=== PATIENT | female | born 1960 | race Caucasian/White ===

== ENCOUNTER 2024-03-17 09:11 | Outpatient (CLI) | payer OTHER, SELFPAY ==
--- OUTSIDE RECORDS SUMMARY | 2024-03-17 09:16 | XMS_ITS | Clinical Summary ---
Author Organization [facility] Address [place], [place] [address] Care Team Providers Care Child Care Sitter Name Role Phone Michelle Germain DO Primary Care Provider [phone] Allergies Active Allergy Reactions Criticality Noted Date Comments Sulfa (Sulfonamide Antibiotics) Rash 11/2006 Medications Medication Sig Dispensed Refills Start Date End Date Status MULTIVITAMIN TAB take 1 tablet by oral route once daily with food 0 08/14/2008 Active flaxseed oil-omega 3,6,9 1,300 mg-845 mg -117 mg-117 mg cap 1300 mg twice daily 0 02/09/2014 Active cholecalciferol (VITAMIN D3) 2,000 unit capsule Take 1 capsule by mouth 2 times daily. 0 01/29/2016 Active hydrocortisone 2.5% creamIndications:Chr onic eczema Apply topically to affected area(s) 2 times daily. 20 g 1 04/27/2018 Active magnesium oxide (MAG-OX 400) 400 mg tablet Take 1 Tablet (400 mg) by mouth once daily. 0 01/01/2022 Active fluocinonide 0.05 TOPICAL (LIDEX) 0.05 % external solutionIndications: Chronic eczema Apply topically to affected area(s) two times daily. 60 mL 04/04/2022 Active CPAPIndications:Obst ructive sleep apnea Travel CPAP machine for home use at pressure: 5-16 cmw , Full face mask x1 q 3mos, with cushion x 1 q mo, tubing x 1 q 3 mo, Headgear x 1 q 6 mo, Filters: Disposable x 2 q mo non-disposable filters x1 q 6mo, Length of Need: 99 months, Frequency of use: Daily 1 Each 11 01/27/2023 Active levothyroxine (SYNTHROID) 50 mcg tabletIndications:Ot her specified hypothyroidism Take 1 Tablet (50 mcg) by mouth once daily. 90 Tablet 3 04/27/2023 Active sertraline (ZOLOFT) 100 mg tabletIndications:Dy sthymic disorder Take 2 Tablets (200 mg) by mouth once daily. 180 Tablet 3 04/27/2023 Active medication order composerIndications: Symptomatic menopausal or female climacteric states Estriol 0.3%: 1 gram vaginal twice weekly at bedtime 30 mL 5 07/06/2023 Active CPAPIndications:Obst ructive sleep apnea CPAP machine for home use at pressure: 5-16 cmw , Heated humidifier x 1 q 5 yr, Humidifier chamber x 1 q 6 mo, Full face mask x1 q 3mos, with cushion x 1 q mo, Heated tubing x 1 q 3 mo, Headgear x 1 q 6 mo, Filters: Disposable x 2 q mo non-disposable filters x1 q 6mo, Length of Need: 99 months, Frequency of use: Daily 1 Each 11 09/23/2023 Active nitrofurantoin macrocrystals/monohy drate (MACROBID) 100 mg capsuleIndications:U TI due to Klebsiella species Take 1 Capsule (100 mg) by mouth two times daily for 5 days. 10 Capsule 02/22/2024 4 Active Problems Problem Noted Date Diagnosed Date Elevated ferritin 04/02/2022 Mixed hyperlipidemia 04/02/2022 Chronic buttock pain 03/18/2022 Overview (03/18/2022): Since injury with zip line. Mar 2022: starting gabapentin (neurontin). 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 Overview (02/03/2013): Diagnosed 2008, notes scanned into chart Urge incontinence 02/03/2013 Overview (02/03/2013): 2009 Adjustment disorder with mixed anxiety and depre ssed mood 01/17/2009 Unspecified sleep apnea 04/20/2007 Overview (04/20/2007): Uses CPap Other atopic dermatitis and related conditions 1 06/20/2006 Overview (04/20/2007): Eczema Anxiety state, unspecified 10/22/2006 Dysthymic disorder 10/22/2006 Unspecified hypothyroidism Encounters Date Type Department Care Team Description 02/19/2024 11:00 AM CDT Orders Only [facility] [address] [place] [address] Lab, [place] 02/19/2024 Travel 02/16/2024 9:20 AM CDT E-Visit [facility] [address] [place] [address] Michelle Germain, eVisit for Urinary Tract Infection 02/15/2024 Telephone [facility] [address] [place] [address] Tomas Zafar MD urinary sym 02/15/2024 Telephone [facility] [address] [place] [address] Carly Salamanca, SARAH Questions 02/15/2024 Nurse Triage [facility] [address] [place] [address] Michelle Germain, DO Urinary Problem from Last 3 Months Immunizations Name Administration Dates Next Due AMB Influenza, IIV3 (Age >=3 years)(Flu Clinic Only) 04/12/2008 AMB Influenza, IIV4 PF (=>6 mos Flulaval,Fluzone Fluarix)(Flu Clinic Only) 03/17/2016 COVID-19 VACCINE SPIKEVAX (M ODERNA 50MCG/0.5ML) 12YO+ PFS 04/27/2023 COVID-19 vaccine (Pfizer-Bio NTech 30mcg/0.3mL) 12YO+ BIVALENT PF, MDV 04/02/2022 COVID-19 vaccine (Pfizer-Bio NTech 30mcg/0.3mL) PF, MDV 10/17/2020 Hepatitis A (Adult) 07/24/2015,04/20/2007,2005 Influenza A (H1N1), Inactivated 05/18/2009 Influenza, IIV3 (Age >=3 years) 04/27/20 12,06/26/2011,04/12/2008,2006,03/24/2006,04/29/2005,05/28/2004,1 07/01/2002,04/12/2002,04/16/2001, 000,03/21/1999 Influenza, IIV4 03/02/2023, 2,03/29/2021,2019,03/01/2019,02/23/2018,03/05/2017,1 ,04/03/2015,03/13/2014 MMR 07/24/2015 Td (Age >=7 Years) 07/10/2004, 4,05/14/1995,1994 Tdap 08/27/2017,09/15/2012,01/08/2007 Zoster (Shingrix-RZV, recombinant) 03/01/2019,,03/15/2018 Family History Medical History Relation Name Comments Other Father Scleroderma Cancer Mother non hodgkins-ly mphoma Leukemia Mother due to chemo fo r lymphoma Other Mother Lupus Cancer-breast Paternal Aunt Psychiatric illness Sister 1 Ricka depressi on No Known Problems Sister 2 No Known Problems Sister 3 Cancer-colon No Family History Cancer-ovarian No Family History Relation Name Status Comments Father 05/22 Maternal Grandfather Maternal Grandmother Mother Paternal Aunt Paternal Grandfather Paternal Grandmother Sister 1 Ricka Alive Sister 2 Alive Sister 3 Alive Social History Tobacco Use Types Packs/Day Years Used Date Smoking Tobacco: Never Smokeless Tobacco: Never Tobacco Cessation:Counseling Given: Yes Alcohol Use Standard Drinks/Week Comments Yes 0 (1 standard drink = 0.6 oz pur e alcohol) 1-2 drink a week PHQ-2 Answer Date Recorded PHQ-2 TOTAL SCORE 0 04/27/2023 Social Connections Answer Date Recorded Frequency of Communication with Friends and Fami ly Not on file 09/18/2023 Financial Resource Strain Answer Date R ecorded Difficulty of Paying Living Expenses 3 09/15/2022 Difficulty of Paying Living Expenses Not on file 09/15/2022 Food Insecurity Answer Date Recorded Worried About Running Out of Food in the Last Ye ar 1 09/15/2022 Transportation Needs Answer Date Record ed Lack of Transportation (Medical) 1 09/15/2022 Housing Stability Answer Date Recorded Unable to Pay for Housing in the Last Year 1 09/15/2022 Sex and Gender Information Value Date Recorded Sex Assigned at Female 04/16/2020 4:24 PM PHD INTERN Gender Identity Female 04/16/2020 4:24 PM PHD INTERN Sexual Orientation Straight 04/16/2020 4: 24 PM PHD INTERN Obstetrics History Para Term AB IAB SAB Ectopic Multiple Livin g Live Births 5 3 3 2 2 3 Date Outcome GA Total Labor Labor/2nd/3rd Weight Sex Type Anes PTL Skye A1 A5 Name Clin SAB SAB Term Term Term Last Filed Vital Signs Vital Sign Reading Time Taken Comments Blood Pressure 118/79 04/27/2023 7:48 AM PHD INTERN Pulse 66 04/27/2023 7:48 AM PHD INTERN Temperature 36.4 ??C (97.6 ??F) 10/15/2021 11:32 AM C DT Respiratory Rate 16 07/09/2009 4:23 PM PHD INTERN Oxygen Saturation 96% 04/27/2023 7:48 AM PHD INTERN Inhaled Oxygen Concentration - - Weight 74.4 kg (164 lb 1.6 oz) 04/27/2023 7:48 A M PHD INTERN Height 164 cm (5' 4.57) 04/27/2023 7:48 AM PHD INTERN Body Mass Index 27.68 04/27/2023 7:48 AM PHD INTERN Plan of Treatment Health Maintenance Due Date Last Done Comments HIV for age 15-65 12/26/1975 COVID-19 vaccine series ( season) 2024 04/27/2023, 04/02/2022, 05/03/2021, Additional history exists Influenza for age 50-64 02/14/2024 03/02/20 23, 04/02/2022, 03/29/2021, Additional history exists BMI (ht and wt on same day) for age 18+ 04/27/2024 04/27/2023, 04/02/2022, 10/15/2021, Additional history exists Depression screening for age 12+ 04/27/2024 04/27/2023, 04/08/2022, 04/02/2022, Additional history exists Mammogram for age 45-75 05/04/2024 05/04/20 23, 04/30/2022, 04/29/2021, Additional history exists Pap test for age 21-65 03/01/2025 0, 03/01/2020, 03/05/2017, Additional history exists Tetanus booster 08/28/2027 08/27/2017, 04/0 08/2012, 01/08/2007, Additional history exists Lipids for age 45-75 04/27/2028 04/27/2023, 03/27/2022, 03/29/2021, Additional history exists Colonoscopy through age 75 05/23/203105/23, 05/23/2021, 05/23/2021, Additional history exists Tdap Completed 08/27/2017, 04/0 08/2012, 01/08/2007 Hepatitis C screening for age 18-79 Completed 03/01/2019 Pneumococcal series for age 6-64 Aged Out No longer eligible based on patient's age to complete this topic Procedures Procedure Name Priority Date/Time Associated Diagnosis Comments URINE CULTURE Add On 02/19/2024 11:00 AM CDT Dysuria Bacteriuria URINALYSIS MICROSCOPIC Routine 02/19/2024 11:00 AM CDT Dysuria UA W/ SEDIMENT EXAM REFLEXED PER CRITERIA Routine 02/19/2024 11:00 AM CDT Dysuria XR MAMMO BINDU BILAT SCREEN Routine 05/04/2023 9:22 AM PHD INTERN Visit for screening mammogram LIPID PANEL W REFLEX MEASURED LDL Routine 04/27/2023 9:01 AM PHD INTERN Mixed hyperlipidemia COLONOSCOPY SCREENING Routine 05/23/2021 7:22 AM PHD INTERN Screening for colon cancer DUCT CLEANER THIN PREP PAP SCREEN IMAGED Routine 03/01/2020 2:43 PM CDT Pap smear for cervical cancer screening ANTI HCV Routine 03/01/2019 8:57 AM CDT Need for hepatitis C screening test from Last 3 Months or Most Recently Relevant to Health Maintenance Results * (ABNORMAL) URINALYSIS MICROSCOPIC (02/19/2024 11:00 AM CDT) RBC 3-5(A) 0-2, None Seen /HPF 02/19/2024 11:24 AM CDT [facility] WBC 51-100(A) 0-2, 3-5, None Seen /HPF 02/19/2024 11:24 AM CDT [facility] BACTERIA Few None Seen, Rare, Few Bacteria/ HPF 02/19/2024 11:24 AM CDT [facility] EPITHELIAL CELLS Few None Seen, Few Epi/HPF 02/19/2024 11:24 AM CDT [facility] Urine URINE SPECIMEN / Unknown Non-Blood / Unknown 02/19/2024 11:00 AM CDT 02/19/2024 11:00 AM CDT Michelle Germain DO URINE [facility] [address] [place] [address], * (ABNORMAL) URINE CULTURE (02/19/2024 11:00 AM CDT) CULTURE RESULT(A) 02/22/2024 6:56 AM CDT [facility] CULTURE 10,000-50,000 CFU/mL Klebsiella pneumoniae 02/22/2024 6:56 AM CDT [facility] Urine URINE SPECIMEN / Unknown Non-Blood / Unknown 02/19/2024 11:00 AM CDT 02/19/2024 11:00 AM CDT Narrative Organism Antibiotic Method Susceptibility Klebsiella pneumoniae TRIMETHOPRIM/SULF <=07/03: S Klebsiella pneumoniae AMPICILLIN R Klebsiella pneumoniae CEFAZOLIN 2: S Klebsiella pneumoniae CEFAZOLIN-UC 2: S Comment:Cefazolin-UC interpretations are for therapy of uncomplicated UTIs due to E.coli, K.pneumoniae, or P.mirablis. Cefazolin breakpoint is used as a surrogate to predict results for the oral agents - cefdinir, cefuroxime, and cephalexin, when used for therapy of uncomplicated UTIs due to E coli, K, pneumoniae, and P. mirabilis. The FDA recommends cefadroxil susceptibility can be deduced from cefazolin. Klebsiella pneumoniae GENTAMICIN <=1: S Klebsiella pneumoniae CEFTRIAXONE <=0.25: S Klebsiella pneumoniae CEFTAZIDIME <=0.5: S Klebsiella pneumoniae LEVOFLOXACIN <=0.12: S Klebsiella pneumoniae CIPROFLOXACIN <=0.06: S Klebsiella pneumoniae PIPERACILLIN/TAZO <=4: S Klebsiella pneumoniae AMPICILLIN/SULBACTAM <=2: S Klebsiella pneumoniae CEFEPIME <=0.12: S Klebsiella pneumoniae MEROPENEM <=0.25: S Klebsiella pneumoniae NITROFURANTOIN 32: S Michelle Germain DO MICROBIOLOGY [facility] [address] [address], [place] * (ABNORMAL) UA W/ SEDIMENT EXAM REFLEXED PER CRITERIA (02/19/2024 11:00 AM CDT) COLOR Yellow Yellow Color 02/19/2024 11:24 AM CDT [facility] CLARITY Clear Clear Clarity 02/19/2024 11:24 AM CDT [facility] SPECIFIC GRAVITY,URINE 1.015 1.010, 1.015, 1.020, 1.025 02/19/2024 11:24 AM CDT [facility] PH,URINE 7.0 6.0, 7.0, 8.0, 5.5, 6.5, 7.5, 8.5 02/19/2024 11:24 AM CDT [facility] UROBILINOGEN, QUALITATIVE Normal Normal EU/dl 02/19/2024 11:24 AM CDT [facility] PROTEIN, URINE Negative Negative mg/dL 02/19/2024 11:24 AM CDT [facility] GLUCOSE, URINE Negative Negative mg/dL 02/19/2024 11:24 AM CDT [facility] KETONES,URINE Negative Negative mg/dL 02/19/2024 11:24 AM CDT [facility] BILIRUBIN,URI NE Negative Negative 02/19/2024 11:24 AM CDT [facility] OCCULT BLOOD,URINE Trace(A) Negative 02/19/2024 11:24 AM CDT [facility] NITRITE Negative Negative 02/19/2024 11:24 AM CDT [facility] LEUKOCYTE ESTERASE Trace(A) Negative 02/19/2024 11:24 AM CDT [facility] Urine URINE SPECIMEN / Unknown Non-Blood / Unknown 02/19/2024 11:00 AM CDT 02/19/2024 11:00 AM CDT Michelle Germain DO URINE [facility] [address] [place] [address], * XR MAMMO BINDU BILAT SCREEN (05/04/2023 9:22 AM PHD INTERN) Anatomical Region Laterality Modality BREASTS, Breast Left, Breast Right Bilateral Mammography Impressions 05/04/2023 1:15 PM PHD INTERN ??There is no radiographic evidence for malignancy. ??Recommend annual mammograms. MAMMOGRAM ASSESSMENT: ??ACR 1 Negative PATIENTS: You will also receive a letter with your examination results in an easy to read format. ??If you have questions about your results, please contact your referring provider. Narrative 05/04/2023 1:15 PM PHD INTERN For Patients: As a result of the 21st Century Cures Act, medical imaging exams and procedure reports are released immediately into your electronic medical record. You may view this report before your referring provider. If you have questions, please contact your health care provider. XR MAMMO BINDU BILAT SCREEN [[id number]] CLINICAL HISTORY: ??This is an asymptomatic 62 y.o. patient. INDICATION FOR EXAM: Mammogram Screening. TECHNIQUE: CC & MLO views were obtained. ??This study was evaluated with the assistance of Computer-Aided Detection. Breast Tomosynthesis was used in interpretation. COMPARISON FILM: Yes 04/30/22 [facility] 04/29/21 [facility] FINDINGS: ??The breasts are heterogeneously dense, which may obscure small masses. There are no dominant masses, suspicious micro calcifications or areas of architectural distortion. Michelle Germain DO MAMMO * (ABNORMAL) LIPID PANEL W REFLEX MEASURED LDL (04/27/2023 9:01 AM PHD INTERN) CHOLESTEROL,TOTAL 229(H) 100 - 199 mg/dL 04/27/2023 6:27 PM PHD INTERN [facility] Comment: Cholesterol, Total Reference Ranges Desirable <200 mg/dL Borderline 200-239 mg/dL High >=240 mg/dL TRIGLYCERIDES 123 <150 mg/dL 04/27/2023 6:27 PM PHD INTERN [facility] HDL CHOLESTEROL 42 >40 mg/dL 6:27 PM [facility] NON-HDL CHOLESTEROL 187(H) <145 mg/dl 04/27/2023 6:27 PM [facility] CHOL/HDL RATIO 5.45(H) <4.50 04/27/2023 6:27 PM PHD INTERN [facility] LDL CHOLESTEROL 162(H) <=130 mg/dL 04/27/2023 6:27 PM [facility] VLDL CHOLESTEROL 25 <=30 mg/dL 04/27/2023 6:27 PM [facility] PROVIDER ORDERED STATUS RANDOM 04/27/2023 6:27 PM [facility] Blood BLOOD SPECIMEN / Unknown Venipuncture / Unknown 04/27/2023 9:01 AM PHD INTERN 04/27/2023 9:02 AM PHD INTERN Michelle Germain DO [facility] [address] [place] [address], * COLONOSCOPY (05/23/2021 7:29 AM PHD INTERN) 05/23/2021 7:29 AM PHD INTERN Narrative Transcriptions Anjum Mandel MD - 05/23/2021 9:51 AM CST Patient Name: Carlee Miles Procedure Date: 05/23/2021 Gender: Female Date of : 1960 Admit Type: Outpatient Procedure: Colonoscopy Proceduralist: Anjum Mandel MD , Pamela Erickson (Nurse) Referring MD: Corrie Hernandez Indications/Pre-Op Diagnosis: Screening for colorectal malignant neoplasm, Last colonoscopy: January 2011 Medications: Fentanyl 200 micrograms IV, Midazolam 4 mgIV, The level of sedation administered wasmoderate Procedure Description: The patient had risks, benefits and alternatives explained to andgave informed consent. The patient had a stable cardiopulmonary status and judged an adequate candidate for conscious sedation. The Colonoscope was passed through the anus and advanced to thececum, identified by appendiceal orifice and ileocecal valve. Thecolonoscopy was performed without difficulty. The patient tolerated the procedure well. The quality of the bowel preparation was good. The ileocecal valve, appendiceal orifice, and rectum were photographed. Complications: No immediate complications. Estimated Blood Loss & Specimen: Estimated blood loss: none. Specimen collected - None Findings: The perianal and digital rectal examinations were normal. The colon (entire examined portion) was mildly redundant. The exam was otherwise without abnormality. Impressions/Post-Op Diagnosis: - Redundant colon. - The examination was otherwise normal. - No specimens collected. Recommendation: - Patient has a contact number available for emergencies. The signsand symptoms of potential delayed complications were discussed with the patient. Return to normal activities tomorrow. Written discharge instructions were provided to the patient. - Resume previous diet. - Continue present medications. - Repeat colonoscopy in 10 years for screening purposes with an adult scope. - Patient's sedation for a repeat study will require Anesthesia staff assistance. Moderate Sedation: Moderate (conscious) sedation was administered by the endoscopy nurse and supervised by the endoscopist. The following parameters were monitored: oxygen saturation, heart rate, respiratory rate, blood pressure, adequacy of pulmonary ventilation and reponse to care. Please refer to the patient's medical record flowsheets and nursing notes for moderate sedation details. Total physician intraservice time was 20 minutes. Anjum aMndel MD 05/23/2021 8:27:06 AM This report has been signed electronically. Note Initiated On: 05/23/2021 7:29 AM Procedure Code(s): --- Professional --- 99722, Colonoscopy, flexible; diagnostic, including collection of specimen(s) bybrushing or washing, when performed (separateprocedure) Diagnosis Code(s): --- Professional --- Z12.11, Encounter for screening formalignant neoplasm of colon Q43.8, Other specified congenitalmalformations of intestine CPT copyright 2020 [employer] [place] [employer]. All rights reserved. The codes documented in this report are preliminary and upon hcc coders reviewmay be revised to meet current compliance requirements. Scope In: 8:03:34 AM Scope Withdrawal Time 0 hours 7 minutes 48 seconds Scope Out: 8:21:21 AM Anjum Mandel MD PROCEDURE ORD * DUCT CLEANER THIN PREP PAP SCREEN IMAGED (03/01/2020 2:43 PM CDT) Case Report Gynecologic Cytology Report ? Case: [id number] ? Authorizing Provider: ??Corrie Hernandez, ??Collected: ? 03/01/2020 1443 ? PA ? Ordering Location: ? [facility] ?? Received: ?03/01/2020 1524 ? Clinic ? First Screen: ?Nimisha Araujo ? Specimen: ?DUCT CLEANER ThinPrep Vial Screening, Cervical ? 03/12/2020 7:45 PM CDT [facility] INTERPRETATION/ RESULT NEGATIVE FOR INTRAEPITHELIAL LESION OR MALIGNANCY (NIL) (none) 03/12/2020 7:45 PM CDT [facility] IMEN ADEQUACY Satisfactory for evaluation Endocervical component present 03/12/2020 7:45 PM CDT [facility] HPV REQUEST HPV and PAP 03/12/2020 7:45 PM CDT [facility] Date of LMP postmenopausal 0 7:45 PM CDT [facility] Last Pap Date 03/05/17 03/12/2020 7:45 PM CDT [facility] Last Pap Result NIL 0 7:45 PM CDT [facility] Abnormal Pap or [place] Bx in last 5 years No 03/12/2020 7:45 PM CDT [facility] Menstrual Status Postmenopausal 03/12/2020 7:45 PM CDT [facility] [place] Bx Done Today No 03/12/2020 7:45 PM CDT [facility] Additional Information None given 03/12/2020 7:45 PM CDT [facility] Comment: Cytology is screened at [facility] - [address] [address] and [facility] - [address] [place] [address] and [facility] - [address] [place] [address] Interpreted at [facility] - [address], [place] [address] Automated Review Successful 03/12/2020 7:45 PM CDT [facility] Comment:Specimen processed s uccessfully by automated manager strategic device, ThinPrep Imaging System, [employer] ANCILLARY TESTING DUCT CLEANER HPV Ordered, Please see separate report 03/12/2020 7:45 PM CDT [facility] Note The pap test is a screening technique, not a diagnostic procedure. It is used primarily to screen for squamous cancers and precursor lesions. Published studies have shown that it is subject to both false negative and false positive results. The pap test should not be used as the sole means to diagnose or exclude pre-malignant and malignant lesions. 03/12/2020 7:45 PM CDT [facility] Other (Cervical) Non-Blood / Unknown 03/01/2020 2:43 PM CDT 03/01/2020 3:24 PM CDT Corrie HAIRSTON PATHOLOGY/CYT OLOGY [facility] [address] [place] [address], [place] * ANTI HCV (03/01/2019 8:57 AM CDT) HEPATITIS C ANTIBODY Non-React brendan Non-React brendan 03/01/2019 4:49 PM CDT [facility] Comment:Antibodies to HCV no t detected; does not exclude the possibility of exposure to HCV. Blood BLOOD SPECIMEN / Unknown Venipuncture / Unknown 03/01/2019 8:57 AM CDT 03/01/2019 8:57 AM CDT Corrie HAIRSTON SEND OUTS Performing Organization Address City/[facility]/ZIP Co de Phone Number [facility] [address] [place] [address], from Last 3 Months or Most Recently Relevant to Health Maintenance Advance Directives Documents on File Type Date Recorded Patient Flour Blender Expl anation Healthcare Directive 03/29/2021 8:04 AM Care Teams Child Care Sitter Relationship Specialty Start Date End Date Michelle Germain DO [address] [place] [address] PCP - General Family Practice 12/18/21
== END 2024-03-17 09:12 | disposition home or self-care (01) ==
PROVIDERS: PCP Physician Assistant Medical; Visit Provider Family Medicine
DX: R53.83 Other fatigue (principal); R79.89 Other specified abnormal findings of blood chemistry; E78.2 Mixed hyperlipidemia; E03.9 Hypothyroidism, unspecified; M35.00 Sjogren syndrome, unspecified
CPT/HCPCS: 80053; 80061; 82306; 82728; 83540; 83550; 84443

== ENCOUNTER 2024-05-05 11:48 | Outpatient (CLI) | payer OTHER, SELFPAY ==
--- OUTSIDE RECORDS SUMMARY | 2024-05-05 10:38 | XMS_ITS | Clinical Summary ---
Author Organization [facility] [facility] Address [place], [place] [address] Care Team Providers Care Body Artist Name Role Phone [facility] [place] Primary Care Provider Allergies Active Allergy Reactions Criticality Noted Date Comments Sulfa (Sulfonamide Antibiotics) Rash 11/2006 Medications Medication Sig Dispensed Refills Start Date End Date Status MULTIVITAMIN TAB take 1 tablet by oral route once daily with food 0 9 Active flaxseed oil-omega 3,6,9 1,300 mg-845 mg -117 mg-117 mg cap 1300 mg twice daily 0 4 Active cholecalciferol (VITAMIN D3) 2,000 unit capsule Take 1 capsule by mouth 2 times daily. 0 6 Active hydrocortisone 2.5% creamIndications:Ch ronic eczema Apply topically to affected area(s) 2 times daily. 20 g 1 8 Active magnesium oxide (MAG-OX 400) 400 mg tablet Take 1 Tablet (400 mg) by mouth once daily. 0 2 Active fluocinonide 0.05 TOPICAL (LIDEX) 0.05 % external solutionIndications :Chronic eczema Apply topically to affected area(s) two times daily. 60 mL 2 Active CPAPIndications:Obs tructive sleep apnea Travel CPAP machine for home use at pressure: 5-16 cmw , Full face mask x1 q 3mos, with cushion x 1 q mo, tubing x 1 q 3 mo, Headgear x 1 q 6 mo, Filters: Disposable x 2 q mo non-disposable filters x1 q 6mo, Length of Need: 99 months, Frequency of use: Daily 1 Each 11 3 Active sertraline (ZOLOFT) 100 mg tabletIndications:D ysthymic disorder Take 2 Tablets (200 mg) by mouth once daily. 180 Tablet 3 3 Active medication order composerIndications :Symptomatic menopausal or female climacteric states Estriol 0.3%: 1 gram vaginal twice weekly at bedtime 30 mL 5 4 Active CPAPIndications:Obs tructive sleep apnea CPAP machine for home use [...] Frequency of use: Daily 1 Each 11 4 Active levothyroxine (SYNTHROID) 50 mcg tabletIndications:O ther specified hypothyroidism TAKE 1 TABLET(50 MCG) BY MOUTH DAILY 90 Tablet 4 Active levothyroxine (SYNTHROID) 50 mcg tabletIndications:O ther specified hypothyroidism Take 1 Tablet (50 mcg) by mouth once daily. 30 Tablet 4 05/04/20 24 Discontinued Active Problems Problem Noted Date Diagnosed Date [...] Encounters Date Type Department Care Team Description 04/30/[address] [address] Jessa Michelle Skye, DO Refill Request (Levothyroxine) 03/18/[address] [address] Sir Germaini Skye, DO Refill Request (Levothyroxine) 02/19/2024 11:00 AM CDT Orders Only [address] [address] [place] [place] [facility] 02/19/2024 Travel 02/16/2024 9:20 AM CDT E-Visit [address] [address] Michelle Germain, eVisit for Urinary Tract Infection 02/15/[address] [address] Tomas Zafar MD urinary sym 02/15/2024 Telephone [facility] [address] [place] [address] Carly Salamanca RN Questions 02/15/2024 Nurse Triage [address] [address] Sir Germaini Skye, Urinary Problem from Last 3 Months Immunizations Name Administration Dates Next Due AMB Influenza, IIV3 (Age >=3 years)(Flu Clinic Only) 04/12/2008 AMB Influenza, IIV4 PF (=>6 mos Flulaval,Fluzone Fluarix)(Flu Clinic Only) 03/17/2016 COVID-19 VACCINE SPIKEVAX (M ODERNA 50MCG/0.5ML) 12YO+ PFS 04/27/2023 COVID-19 vaccine ([employer]-Bio NTech 30mcg/0.3mL) 12YO+ BIVALENT PF, MDV 04/02/2022 COVID-19 vaccine (Pfizer-Bio NTech 30mcg/0.3mL) PF, MDV 10/17/2020 Hepatitis A (Adult) 07/24/2015,04/20/2007,2005 Influenza A (H1N1), Inactivated 05/18/2009 Influenza, IIV3 (Age >=3 years) 04/27/20 12,06/26/2011,04/12/2008,2006,03/24/2006,04/29/2005,05/28/2004,1 07/01/2002,04/12/2002,04/16/2001, 000,03/21/1999 Influenza, IIV4 03/02/2023,,03/29/2021,2019,03/01/2019,02/23/2018,03/05/2017,1 ,04/03/2015,03/13/2014 MMR 07/24/2015 Td (Age >=7 Years) [...] Sex Assigned at Female 04/16/2020 4:24 PM ANIMAL ASSISTANT Gender Identity Female 04/16/2020 4:24 PM ANIMAL ASSISTANT Sexual Orientation Straight 04/16/2020 4: 24 PM ANIMAL ASSISTANT Obstetrics History Para Term AB IAB SAB Ectopic Multiple Livin g Live Births 5 3 3 2 2 3 Date Outcome GA Total Labor Labor/2nd/3rd Weight Sex Type Anes PTL Skye A1 A5 Name Clin SAB SAB Term Term Term Last Filed Vital Signs Vital Sign Reading Time Taken Comments Blood Pressure 118/79 04/27/2023 7:48 AM ANIMAL ASSISTANT Pulse 66 04/27/2023 7:48 AM ANIMAL ASSISTANT Temperature 36.4 C (97.6 F) 10/15/2021 11:32 AM CDT Respiratory Rate 16 07/09/2009 4:23 PM ANIMAL ASSISTANT Oxygen Saturation 96% 04/27/2023 7:48 AM ANIMAL ASSISTANT Inhaled Oxygen Concentration - - Weight 74.4 kg (164 lb 1.6 oz) 04/27/2023 7:48 A M ANIMAL ASSISTANT Height 164 cm (5' 4.57) 04/27/2023 7:48 AM ANIMAL ASSISTANT Body Mass Index 27.68 04/27/2023 7:48 AM ANIMAL ASSISTANT Plan of Treatment Health Maintenance Due Date Last Done Comments HIV for age 15-65 12/26/1975 COVID-19 vaccine series ( season) 2024 04/27/2023, 04/02/2022, 05/03/2021, Additional history exists Influenza for age 50-64 02/14/2024 03/02/20, 04/02/2022, 03/29/2021, Additional history exists BMI (ht and wt on same day) for age 18+ 04/27/2024 04/27/2023, 04/02/2022, 10/15/2021, Additional history exists Depression screening for age 12+ 04/27/2024 04/27/2023, 04/08/2022, 04/02/2022, Additional history exists Mammogram for age 45-75 05/04/2024 05/04/20, 04/30/2022, 04/29/2021, Additional history exists Pap test for age 21-65 03/01/2025 , 03/01/2020, 03/05/2017, Additional history exists Tetanus booster 08/28/2027 08/27/2017, 0 08/2012, 01/08/2007, Additional history exists Lipids for age 45-75 04/27/2028 04/27/2023, 03/27/2022, 03/29/2021, Additional history exists Colonoscopy through age 75 05/23/203105/23, 05/23/2021, 05/23/2021, Additional history exists Tdap Completed 08/27/2017, 0 08/2012, 01/08/2007 Hepatitis C screening for age [...] BINDU BILAT SCREEN Routine 05/04/2023 9:22 AM ANIMAL ASSISTANT Visit for screening mammogram LIPID PANEL W REFLEX MEASURED LDL Routine 04/27/2023 9:01 AM ANIMAL ASSISTANT Mixed hyperlipidemia COLONOSCOPY SCREENING Routine 05/23/2021 7:22 AM ANIMAL ASSISTANT Screening for colon cancer METAL PUNCH PRESS OPERATOR THIN PREP PAP SCREEN IMAGED Routine 03/01/2020 2:43 PM CDT Pap smear for cervical cancer screening ANTI HCV Routine 03/01/2019 8:57 AM CDT Need for hepatitis C screening test from Last 3 Months or Most Recently Relevant to Health Maintenance Results * (ABNORMAL) URINALYSIS MICROSCOPIC (02/19/2024 11:00 AM CDT) RBC 3-5(A) 0-2, None Seen /HPF 02/19/2024 11:24 AM CDT [facility] WBC 51-100(A) 0-2, 3-5, None Seen /HPF 02/19/2024 11:24 AM CDT [facility] BACTERIA Few None Seen, Rare, Few Bacteria/ HPF 02/19/2024 11:24 AM CDT [facility] EPITHELIAL CELLS Few None Seen, Few Epi/HPF 02/19/2024 11:24 AM CDT [facility] Urine URINE SPECIMEN / Unknown Non-Blood / Unknown 02/19/2024 11:00 AM CDT 02/19/2024 11:00 AM CDT Michelle Germain DO URINE [facility] [address] [place] [address], * (ABNORMAL) URINE CULTURE (02/19/2024 11:00 AM CDT) CULTURE RESULT(A) 02/22/2024 6:56 AM CDT [facility] CULTURE 10,000-50,000 CFU/mL Klebsiella pneumoniae 02/22/2024 6:56 AM CDT [facility] Urine URINE SPECIMEN / [...] NITROFURANTOIN 32: S Michelle Germain DO MICROBIOLOGY [facility] [address] [place] [address], * (ABNORMAL) UA W/ SEDIMENT EXAM REFLEXED PER CRITERIA (02/19/2024 11:00 AM CDT) COLOR Yellow Yellow Color 02/19/2024 11:24 AM CDT [facility] CLARITY Clear Clear Clarity 02/19/2024 11:24 AM CDT [facility] SPECIFIC GRAVITY,URINE 1.015 1.010, 1.015, 1.020, 1.025 02/19/2024 11:24 AM CDT [facility] PH,URINE 7.0 6.0, 7.0, 8.0, 5.5, 6.5, 7.5, 8.5 02/19/2024 11:24 AM CDT [facility] UROBILINOGEN, QUALITATIVE Normal Normal EU/dl 02/19/2024 11:24 AM CDT [facility] PROTEIN, URINE Negative Negative mg/dL 02/19/2024 11:24 AM CDT [facility] GLUCOSE, URINE Negative Negative mg/dL 02/19/2024 11:24 AM CDT [facility] KETONES,URINE Negative Negative mg/dL 02/19/2024 11:24 AM CDT [facility] BILIRUBIN,URI NE Negative Negative 02/19/2024 11:24 AM CDT [facility] OCCULT BLOOD,URINE Trace(A) Negative 02/19/2024 11:24 AM CDT [facility] NITRITE Negative Negative 02/19/2024 11:24 AM CDT [facility] LEUKOCYTE ESTERASE Trace(A) Negative 02/19/2024 11:24 AM CDT [facility] Urine URINE SPECIMEN / Unknown Non-Blood / Unknown 02/19/2024 11:00 AM CDT 02/19/2024 11:00 AM CDT Michelle Germain DO URINE [facility] [address] [place] [address], * XR MAMMO BINDU BILAT SCREEN (05/04/2023 9:22 AM ANIMAL ASSISTANT) Anatomical Region Laterality Modality BREASTS, Breast Left, Breast Right Bilateral Mammography Impressions 05/04/2023 1:15 PM ANIMAL ASSISTANT There is no radiographic evidence for malignancy. Recommend annual mammograms. MAMMOGRAM ASSESSMENT: ACR 1 Negative PATIENTS: You will also receive a letter with your examination results in an easy to read format. If you have questions about your results, please contact your referring provider. Narrative 05/04/2023 1:15 PM ANIMAL ASSISTANT For Patients: As a result of the Century Cures Act, medical imaging exams and procedure reports are released immediately into your electronic medical record. You may view this report before your referring provider. If you have questions, please contact your health care provider. XR MAMMO BINDU BILAT SCREEN [[id number]] CLINICAL HISTORY: This is an asymptomatic 62 y.o. patient. INDICATION FOR EXAM: Mammogram Screening. TECHNIQUE: CC & MLO views were obtained. This study was evaluated with the assistance of Computer-Aided Detection. Breast Tomosynthesis was used in interpretation. COMPARISON FILM: Yes 04/30/22 [facility] 04/29/21 [facility] FINDINGS: The breasts are heterogeneously dense, which may obscure small masses. There are no dominant masses, suspicious micro calcifications or areas of architectural distortion. Michelle Germain DO MAMMO * (ABNORMAL) LIPID PANEL W REFLEX MEASURED LDL (04/27/2023 9:01 AM ANIMAL ASSISTANT) CHOLESTEROL,TOTAL 229(H) 100 - 199 mg/dL 04/27/2023 6:27 PM ANIMAL ASSISTANT [facility] [employer] [facility] Comment: Cholesterol, Total Reference Ranges Desirable <200 mg/dL Borderline 200-239 mg/dL High >=240 mg/dL TRIGLYCERIDES 123 <150 mg/dL 04/27/2023 6:27 PM ANIMAL ASSISTANT [facility] [employer] HDL CHOLESTEROL 42 >40 mg/dL 6:27 PM ANIMAL ASSISTANT [facility] NON-HDL CHOLESTEROL 187(H) <145 mg/dl 04/27/2023 6:27 PM ANIMAL ASSISTANT [facility] [employer] [facility] CHOL/HDL RATIO 5.45(H) <4.50 04/27/2023 6:27 PM ANIMAL ASSISTANT [facility] [employer] [facility] LDL CHOLESTEROL 162(H) <=130 mg/dL 04/27/2023 6:27 PM ANIMAL ASSISTANT [facility] VLDL CHOLESTEROL 25 <=30 mg/dL 04/27/2023 6:27 PM ANIMAL ASSISTANT [facility] [employer] [facility] PROVIDER ORDERED STATUS RANDOM 04/27/2023 6:27 PM ANIMAL ASSISTANT [facility] [employer] [facility] Blood BLOOD SPECIMEN / Unknown Venipuncture / Unknown 04/27/2023 9:01 AM ANIMAL ASSISTANT 04/27/2023 9:02 AM ANIMAL ASSISTANT Michelle Germain DO CHEMISTRY [facility] [address] [place] [address], * COLONOSCOPY (05/23/2021 7:29 AM ANIMAL ASSISTANT) 05/23/2021 7:29 AM ANIMAL ASSISTANT Narrative Transcriptions Anjum Mandel MD - 05/23/2021 [...] physician intraservice time was 20 minutes. Anjum Mandel MD 05/23/2021 8:27:06 AM This report has been signed electronically. Note Initiated On: 05/23/2021 7:29 AM Procedure Code(s): --- Professional --- 55848, Colonoscopy, flexible; diagnostic, including collection of specimen(s) bybrushing or washing, when performed (separateprocedure) Diagnosis Code(s): --- Professional --- Z12.11, Encounter for screening formalignant neoplasm of colon Q43.8, Other specified congenitalmalformations of intestine CPT copyright 2020 [employer]. All rights reserved. The codes documented in this report are preliminary and upon freight associate reviewmay be revised to meet current compliance requirements. Scope In: 8:03:34 AM Scope Withdrawal Time 0 hours 7 minutes 48 seconds Scope Out: 8:21:21 AM Anjum Mandel MD PROCEDURE ORD * METAL PUNCH PRESS OPERATOR THIN PREP PAP SCREEN IMAGED (03/01/2020 2:43 PM CDT) Case Report Gynecologic Cytology Report Case: [id number] Authorizing Provider: Corrie Hernandez, Collected: 03/01/2020 1443 PA Ordering Location: [facility] Received: 03/01/2020 1524 Clinic First Screen: Nimisha Araujo Specimen: METAL PUNCH PRESS OPERATOR ThinPrep Vial Screening, Cervical 03/12/2020 7:45 PM [facility]T [facility] INTERPRETATION/ RESULT NEGATIVE FOR INTRAEPITHELIAL LESION OR MALIGNANCY (NIL) (none) 03/12/2020 7:45 PM CDT [facility] IMEN ADEQUACY Satisfactory for evaluation Endocervical component present 03/12/2020 7:45 PM CDT [facility] HPV REQUEST HPV and PAP 03/12/2020 7:45 PM CDT [facility] Date of LMP postmenopausal 0 7:45 PM CDT [facility] [employer] [facility] Last Pap Date 03/05/17 03/12/2020 7:45 PM CDT [facility] [employer] [facility] Last Pap Result NIL 0 7:45 PM CDT [facility] [employer] [facility] Abnormal Pap or Mason Bx in last 5 years No 03/12/2020 7:45 PM CDT [facility] [employer] [facility] Menstrual Status Postmenopausal 03/12/2020 7:45 PM CDT [facility] [employer] [facility] Mason Bx Done Today No 03/12/2020 7:45 PM CDT [facility] [employer] [facility] Additional Information None given 03/12/2020 7:45 PM CDT [facility] [employer] [facility] Comment: Cytology is screened at [facility] - [address], [place] [address] and [facility] - [address], [place] [address] and [facility] - [address] [place] [address] Interpreted at [facility] - [address], [place] [address] Automated Review Successful 03/12/2020 7:45 PM CDT [facility] [employer] [facility] Comment:Specimen processed s uccessfully by automated hydroelectric production manager device, ThinPrep Imaging System, [employer] ANCILLARY TESTING METAL PUNCH PRESS OPERATOR HPV Ordered, Please see separate report 03/12/2020 7:45 PM CDT [facility] [employer]AL [facility] Note The pap test is a [...] and malignant lesions. 03/12/2020 7:45 PM CDT [facility] [employer] [facility] Other (Cervical) Non-Blood / Unknown 03/01/2020 2:43 PM CDT 03/01/2020 3:24 PM CDT Corrie HAIRSTON PATHOLOGY/CYT OLOGY [facility] [address] [place] [address], [place] * ANTI HCV (03/01/2019 8:57 AM CDT) HEPATITIS C ANTIBODY Non-React brendan Non-React brendan 03/01/2019 4:49 PM CDT [facility] [employer] [facility] Comment:Antibodies to HCV no t detected; does not exclude the possibility of exposure to HCV. Blood BLOOD SPECIMEN / Unknown Venipuncture / Unknown 03/01/2019 8:57 AM CDT 03/01/2019 8:57 AM CDT Corrie HAIRSTON SEND OUTS [facility] [address] [place] [address], [place] from Last 3 Months or Most Recently Relevant to Health Maintenance Advance Directives Documents on File Type Date Recorded Patient Software Project Lead Expl anation Healthcare Directive 03/29/2021 8:04 AM Care Teams Body Artist Relationship Specialty Start Date End Date [facility] [address] [place] [address] PCP - General 05/04/24
[2024-05-07 05:23] LABS: HPV Source Cervical/Vag; HPV, High Risk by TMA Not Detected
== END 2024-05-05 11:49 | disposition home or self-care (01) ==
PROVIDERS: PCP Family Medicine; Visit Provider Family Medicine
DX: Z00.00 Encounter for general adult medical examination without abnormal findings (principal); E78.5 Hyperlipidemia, unspecified; R79.89 Other specified abnormal findings of blood chemistry; R53.83 Other fatigue; E03.9 Hypothyroidism, unspecified; Z12.4 Encounter for screening for malignant neoplasm of cervix; Z11.3 Encounter for screening for infections with a predominantly sexual mode of transmission
CPT/HCPCS: 86140; 87624; 87625; 88141; 88142

== ENCOUNTER 2024-05-31 08:15 | Outpatient (CLI) | payer OTHER, SELFPAY ==
--- NOTE | 2024-05-31 08:15 | CRLHL7_ITS ---
For Patients: As a result of the Century Cures Act, medical imaging exams and procedure reports are released immediately into your electronic medical record. You may view this report before your referring provider. If you have questions, please contact your health care provider. BILATERAL SCREENING MAMMOGRAM WITH COMPUTER-AIDED DETECTION AND TOMOSYNTHESIS TECHNIQUE: CC and MLO views were obtained. These mammographic images have been obtained using full-field digital technique. These mammographic images were interpreted with the benefit of computer-aided detection. Breast Tomosynthesis was used in this interpretation. COMPARISON FILM: 05/04/23, 04/30/22, 04/26/19. FINDINGS: The breasts are heterogeneously dense, which may obscure small masses IMPRESSION: There is no radiographic evidence for malignancy. ASSESSMENT: BI-RADS Category 1: Negative RECOMMENDATION: Routine screening mammogram in 1 year. A lay language report of this examination will be provided to the patient. Obinna Montalvo M.D. Diagnostic Radiologist [employer] [facility] [email or web address] Transcribed: 3:37 p.mRoberto ortiz/Dictated by: Obinna Montalvo MD @ 05/31/2024 10:40:00 AM (Electronically Signed)
== END 2024-05-31 08:16 | disposition home or self-care (01) ==
LOC: MAMMO 08:15
PROVIDERS: PCP Family Medicine; Visit Provider Family Medicine
DX: Z12.31 Encounter for screening mammogram for malignant neoplasm of breast (principal); R92.333 Mammographic heterogeneous density, bilateral breasts
CPT/HCPCS: 77063; 77067

== ENCOUNTER 2024-08-08 09:20 | Outpatient (CLI) | payer OTHER, SELFPAY | END 2024-08-08 09:21 | disposition home or self-care (01) | LOC: NFLDREF 08-10 05:37 | PROVIDERS: PCP Family Medicine; Referring Provider Family Medicine; Visit Provider Family Medicine | DX: E78.5 Hyperlipidemia, unspecified (principal) | CPT/HCPCS: 80061 ==

== ENCOUNTER 2025-05-08 10:09 | Outpatient (CLI) | payer OTHER, SELFPAY | END 2025-05-08 10:10 | disposition home or self-care (01) | LOC: NFLDREF 05-13 17:29 | PROVIDERS: PCP Family Medicine; Referring Provider Family Medicine; Visit Provider Family Medicine | DX: R79.89 Other specified abnormal findings of blood chemistry (principal); E78.5 Hyperlipidemia, unspecified; R53.83 Other fatigue; E03.9 Hypothyroidism, unspecified | CPT/HCPCS: 80053; 80061; 82728; 83540; 83550; 84443 ==